=== PATIENT | female | born 1980 | race Caucasian/White ===

== ENCOUNTER 2016-10-28 14:30 | Emergency (ER) | payer OTHER ==
[~2016-10-28] VITALS: Ht 157.5 cm; Wt 72.6 kg
[~2016-10-28 14:30] MED LIST: ALPR1T PO; BIRTH CONTROL PO; IBP200T PO; LORA1TAB PO; MECL25TA56 PO; METO-274 PO; SRTR100T PO; TPR25T PO; ZLP10T PO
[2016-10-28] MEDS ORDERED: LIDOCAINE/EPI 1%-1:100,000 (XYLOCAINE) 20ML ONE (14:33)
[2016-10-28] MEDS ORDERED: NS IV 1000 ML 1,000 ML IV ONE (14:35)
[2016-10-28] MEDS ORDERED: LIDOCAINE/EPI 1%-1:100,000 (XYLOCAINE) 20ML INJ ONE (15:15)
[2016-10-28 15:26] LABS: BASOPHILS % (AUTO) 0 % (0-10); EOSINOPHILS % (AUTO) 0 % (0-10); LYMPHOCYTES # (AUTO) 1.4 X 10^3 (1.0-4.0); LYMPHOCYTES % (AUTO) 19 % (12-44); MEAN CORPUSCULAR HEMOGLOBIN 32 PG (25-34); MEAN CORPUSCULAR HGB CONC 34 G/DL (32-36); MEAN CORPUSCULAR VOLUME 93 FL (80-99); MEAN PLATELET VOLUME 10.1 FL (7.4-10.4); MONOCYTES # (AUTO) 0.9 X 10^3 (0.0-1.0); MONOCYTES % (AUTO) 13 % (0-12); NEUTROPHILS # (AUTO) 4.8 X 10^3 (1.8-7.8); NEUTROPHILS % (AUTO) 68 % (42-75); PLATELET COUNT 93 10^3/uL (130-400); RED BLOOD COUNT 3.33 10^6/uL (4.35-5.85); WHITE BLOOD COUNT 7.1 10^3/uL (4.3-11.0)
--- NOTE | 2016-10-28 15:30 | Diagnostic Imaging Report ---
PROCEDURE: CT head, face, and cervical spine without contrast. TECHNIQUE: Multiple contiguous axial images were obtained through the head, neck, and facial bones without the use of intravenous contrast. Sagittal and coronal reformations through the cervical spine and facial bones were also performed. INDICATION: Fall after seizure. COMPARISON: CT head of 09/16/10. CT HEAD FINDINGS: No intracranial hyperdense hemorrhage or space-occupying mass. No hydrocephalus or midline shift. Toure-white matter differentiation is normal. Basilar cisterns are well maintained. Right frontal scalp swelling and subcutaneous hematoma. There is associated subcutaneous air compatible with dermal laceration. No acute skull fracture. IMPRESSION: 1. No acute intracranial process. Specifically, no acute hemorrhage or space-occupying mass. 2. Right frontal scalp swelling with subcutaneous hematoma and small dermal laceration. No skull fracture. CT FACE FINDINGS: No fracture in the mid face. Specifically, the orbital appiah, maxillary sinus appiah, zygomatic arches and pterygoid plates are intact. No air-fluid level in the paranasal sinuses to serve as a secondary sign of acute fracture. Globes are symmetric without evidence of traumatic lens dislocation. No evidence of retrobulbar hematoma. The mandible is intact. No dislocation of the temporomandibular joints. Nasal bones are intact. IMPRESSION: 1. No acute fracture of the midface or mandible. 2. No evidence of intraorbital injury. CT CERVICAL SPINE FINDINGS: No acute fracture or traumatic malalignment. Intervertebral disc space heights are well maintained. No evidence of traumatic disc herniation by CT. No high-grade osseous narrowing of the spinal canal or neuroforamen. Lung apices are clear without pneumothorax. Airway is widely patent. No prevertebral soft tissue swelling. Visualized thyroid is normal. No cervical lymphadenopathy. IMPRESSION: 1. No acute fracture or traumatic malalignment of the cervical spine. Dictated by: Dictated on workstation # [id number]
[2016-10-28 15:37] LABS: INR 1.5 (0.8-1.4); PROTHROMBIN TIME PATIENT 17.5 SEC (12.2-14.7)
[2016-10-28 15:47] LABS: ALANINE AMINOTRANSFERASE 20 U/L (0-55); ALBUMIN 3.4 G/DL (3.2-4.5); ANION GAP 9 MMOL/L (5-14); ASPARTATE AMINO TRANSFERASE 48 U/L (5-34); BILIRUBIN,TOTAL 1.6 MG/DL (0.1-1.0); BLOOD UREA NITROGEN 8 MG/DL (7-18); BUN/CREATININE RATIO 11; CALCIUM 8.2 MG/DL (8.5-10.1); CARBON DIOXIDE 26 MMOL/L (21-32); CHLORIDE 99 MMOL/L (98-107); CREATININE SERUM 0.73 MG/DL (0.60-1.30); GFR ESTIMATED > 60; GLUCOSE 148 MG/DL (70-105); MAGNESIUM 1.6 MG/DL (1.8-2.4); POTASSIUM 3.1 MMOL/L (3.6-5.0); SODIUM 134 MMOL/L (135-145); TOTAL PROTEIN 6.6 G/DL (6.4-8.2)
--- NOTE | 2016-10-28 15:47 | ED Neurological Problem ---
General Chief Complaint: Neurological Problems Stated Complaint: SEIZURE Nursing Triage Note: PT BROUGHT IN BY [facility] WITH C/O SEIZURE ACTIVITY. [facility] WHEN SHE REPORTEDLY HAD A SEIZURE AND FELL, HITTING HER HEAD ON THE FLOOR. PT HAS APPROX 1.5 CM LAC TO R TOP OF HEAD. PT IS A&O X 4 AT THIS TIME. SHE C/O HEAD PAIN, DENIES NECK OR BACK PAIN. C COLLAR APPLIED AT THIS TIME. PT REPORTS THAT APPROX 6 MONTHS AGO HER OPHTHALMIC TECHNICIAN TOOK HER OFF HER METOPROLOL AND TOPAMAX. Nursing Sepsis Screen: No Definite Risk Source: patient, EMS Exam Limitations: no limitations History of Present Illness Time seen by provider: 14:35 Initial Comments Patient was brought to the emergency room via EMS after having a fall at a local grocery store caused by a brief seizure lasting 20-30 seconds according to witnesses as reported by EMS. EMS and patient stated history as above. Patient commented to nursing staff that she did not sleep well last night. She seems anxious. There was an arterial bleed within the right anterior scalp laceration. Dr. Toscano was present in the emergency room and was consulted for assistance with closure. Arterial bleed cannot be directly stopped, therefore a wide running suture was used to tamponade on the bleed. Allergies and Home Medications Allergies Coded Allergies: penicillin V (Verified Allergy, Unknown, 09/17/10) Home Medications 1 TAB PO DAILY (Reported) Metoprolol Succinate 100 Mg Tab.er.24h 100 MG PO DAILY (Reported) Topiramate 25 Mg Tablet 25 MG PO (Reported) Topiramate 25 Mg Tablet #20 25 MG PO BID Prescribed by: KENNEY VELAZQUEZ on 10/28/16 1611 Constitutional: no symptoms reported Eyes: No Symptoms Reported Ears, Nose, Mouth, Throat: see HPI Respiratory: no symptoms reported Cardiovascular: no symptoms reported Gastrointestinal: no symptoms reported Genitourinary: no symptoms reported Musculoskeletal: no symptoms reported Skin: see HPI Psychiatric/Neurological: See HPI Endocrine: No Symptoms Reported Past Tautvnn-Jgkndo-Mttgxq Hx Patient Social History Alcohol Use: Denies Use Recreational Drug Use: Yes Drug of Choice: marijuana Smoking Status: Current Everyday Smoker Type Used: Cigarettes Recent Foreign Travel: No Contact w/Someone Who Travel: No Recent Infectious Disease Expo: No Recent Hopitalizations: No Physical Abuse Screen: No Sexual Abuse: No Immunizations Up To Date Tetanus Booster (TDap): Less than 5yrs Surgeries HX Surgeries: Yes (WISDOM TEETH REMOVED) Respiratory Hx Respiratory Disorders: No Cardiovascular Hx Cardiac Disorders: Yes Cardiac Disorders: Hypertension Neurological Hx Neurological Disorders: Yes Neurological Disorders: Seizure Disorder Reproductive System Hx Reproductive Disorders: No Genitourinary Hx Genitourinary Disorders: No Gastrointestinal Hx Gastrointestinal Disorders: Yes Gastrointestinal Disorders: Liver Disease/Jaundice Musculoskeletal Hx Musculoskeletal Disorders: No Endocrine Hx Endocrine Disorders: No HEENT HX ENT Disorders: Yes Cancer Hx Cancer: No Psychosocial Hx Psychiatric Problems: Yes Blood Transfusions Hx Blood Disorders: No Physical Exam Vital Signs Vital Sign - Last 12Hours 10/28/16 14:30 Temp 98.9 Pulse 134 Resp 14 B/P 156/100 Pulse Ox 96 O2 Delivery Room Air Capillary Refill : Less Than 3 Seconds General Appearance: WD/WN mild distress HEENT: PERRL/EOMI pharynx normal other (1.5 cm laceration on the right frontal scalp with arterial bleed) Neck: non-tender full range of motion supple normal inspection Respiratory: lungs clear normal breath sounds no respiratory distress no accessory muscle use Cardiovascular: regular rate, rhythm no edema no murmur Gastrointestinal: non tender soft Extremities: normal inspection no pedal edema Neurologic/Psychiatric: rehab technician II-XII nml as tested no motor/sensory deficits alert oriented x 3 other (anxious, fine tremor) Crainal Nerves: normal hearing normal speech PERRL Coordination/Gait: normal gait Motor/Sensory: no motor deficit no sensory deficit Skin: normal color warm/dry other (1.5 cm laceration on the right frontal scalp with arterial bleed) Progress/Results/Core Measures Results/Orders Lab Results Laboratory Tests Test 10/28/16 15:16 10/28/16 15:54 Range/Units Activated Partial Thromboplast Time 28 24-35 SEC Alanine Aminotransferase (ALT/SGPT) 20 0-55 U/L Albumin 3.4 3.2-4.5 G/DL Alkaline Phosphatase 64 40-136 U/L Anion Gap 9 5-14 MMOL/L Aspartate Amino Transf (AST/SGOT) 48 H 5-34 U/L BUN/Creatinine Ratio 11 Basophils # (Auto) 0.0 0.0-0.1 10^3/uL Basophils (%) (Auto) 0 0-10 % Blood Urea Nitrogen 8 7-18 MG/DL Calcium Level 8.2 L 8.5-10.1 MG/DL Carbon Dioxide Level 26 21-32 MMOL/L Chloride Level 99 98-107 MMOL/L Creatinine 0.73 0.60-1.30 MG/DL Eosinophils # (Auto) 0.0 0.0-0.3 10^3/uL Eosinophils (%) (Auto) 0 0-10 % Estimat Glomerular Filtration Rate > 60 Glucose Level 148 H 70-105 MG/DL Hematocrit 31 L 35-52 % Hemoglobin 10.5 L 11.5-16.0 G/DL INR Comment 1.5 H 0.8-1.4 Lymphocytes # (Auto) 1.4 1.0-4.0 X 10^3 Lymphocytes (%) (Auto) 19 12-44 % Magnesium Level 1.6 L 1.8-2.4 MG/DL Mean Corpuscular Hemoglobin 32 25-34 PG Mean Corpuscular Hemoglobin Concent 34 32-36 G/DL Mean Corpuscular Volume 93 80-99 FL Mean Platelet Volume 10.1 7.4-10.4 FL Monocytes # (Auto) 0.9 0.0-1.0 X 10^3 Monocytes (%) (Auto) 13 H 0-12 % Neutrophils # (Auto) 4.8 1.8-7.8 X 10^3 Neutrophils (%) (Auto) 68 42-75 % Platelet Count 93 L 130-400 10^3/uL Potassium Level 3.1 L 3.6-5.0 MMOL/L Prothrombin Time 17.5 H 12.2-14.7 SEC Red Blood Count 3.33 L 4.35-5.85 10^6/uL Red Cell Distribution Width 14.0 10.0-14.5 % Serum Alcohol < 10 <10 MG/DL Serum Test, Qualitative NEGATIVE NEGATIVE Sodium Level 134 L 135-145 MMOL/L TSH [place] Testing 1.08 0.35-4.94 UIU/ML Total Bilirubin 1.6 H 0.1-1.0 MG/DL Total Protein 6.6 6.4-8.2 G/DL White Blood Count 7.1 4.3-11.0 10^3/uL Urine Bacteria NONE /HPF Urine Bilirubin NEGATIVE NEGATIVE Urine Casts NONE /LPF Urine Clarity SLIGHTLY CLOUDY Urine Color YELLOW Urine Crystals NONE /LPF Urine Culture Indicated NO Urine Glucose (UA) NEGATIVE NEGATIVE Urine Ketones 1+ H NEGATIVE Urine Leukocyte Esterase 1+ H NEGATIVE Urine Mucus NEGATIVE /LPF Urine Nitrite NEGATIVE NEGATIVE Urine Protein 3+ H NEGATIVE Urine RBC 0-2 /HPF Urine RBC (Auto) 4+ H NEGATIVE Urine Specific [place] 1.010 L 1.016-1.022 Urine Squamous Epithelial Cells 0-2 /HPF Urine Urobilinogen 8 H NORMAL MG/DL Urine WBC 0-2 /HPF Urine pH 7 5-9 My Orders Orders-KENNEY FELDER MD Ct Head/Face/Cervical Wo (10/28/16 14:35) Alcohol (10/28/16 14:35) Cbc With Automated Diff (10/28/16 14:35) Comprehensive Metabolic Panel (10/28/16 14:35) Drug Screen Stat (Urine) (10/28/16 14:35) Hcg,Qualitative Serum (10/28/16 14:35) Magnesium (10/28/16 14:35) Thyroid Analyzer (10/28/16 14:35) Ua Culture If Indicated (10/28/16 14:35) Saline Lock/Iv-Start (10/28/16 14:35) Ns Iv 1000 Ml (Sodium Chloride 0.9%) (10/28/16 14:35) Levetiracetam Injection (Keppra Injectio (10/28/16 21:00) Lidocaine/Epi 1% 1:100,000 (Xylocaine /E (10/28/16 14:33) Lidocaine/Epi 1% 1:100,000 (Xylocaine /E (10/28/16 15:15) Consult Physician (10/28/16 15:01) Protime With Inr (10/28/16 15:13) Partial Thromboplastin Time (10/28/16 15:13) Potassium Chloride (Tablet) (Klor Con Ta (10/28/16 16:00) Topiramate Tablet (Topamax Tablet) (10/28/16 16:15) Medications Given in ED Current Medications Medications Dose Ordered Sig/Betsy Route Start Time Stop Time Status Last Admin Dose Admin Lidocaine/ Epinephrine 20 ml ONCE ONCE INJ 10/28/16 15:15 10/28/16 15:16 DC 10/28/16 14:45 20 ML Potassium Chloride 40 meq ONCE ONCE PO 10/28/16 16:00 10/28/16 16:01 DC 10/28/16 16:34 40 MEQ Topiramate 25 mg ONCE ONCE PO 10/28/16 16:15 10/28/16 16:16 DC 10/28/16 16:35 25 MG Vital Signs/I&O Vital Sign - Last 12Hours 10/28/16 10/28/16 14:30 16:35 Temp 98.9 98.9 Pulse 134 100 Resp 14 16 B/P 156/100 Pulse Ox 96 97 O2 Delivery Room Air Room Air Blood Pressure Mean: 118 Progress Note : Progress Note The scalp laceration with arterial bleed was controlled with tamponade not with running suture. Dr. Toscano applied the suture after 4 mL of lidocaine with epinephrine was injected by this provider. CT of the head, face, and cervical spine was negative for acute injury. C-collar was removed after review of imaging reports. Patient was given a liter of IV fluids and 500 mg of IV Keppra. Prior to dismissal she was also given potassium 40 mEq orally and 25 mg of Topamax. It is presumed the Topamax was stopped by her GI specialist due to liver failure and metabolism of her antiepileptic medications by the liver. Patient was instructed use of medications metabolized by the liver needs to be done under supervision and cautiously. A short-term prescription for low-dose Topamax was provided with instructions to review these medications with her provider on follow-up. Mild elevation in transaminases along with elevated INR suggest chronic liver failure. Patient was dismissed home in good condition. We did address her prior marijuana use and she does admit to using marijuana in recent weeks. She was advised that use of any illicit substances can potentiate seizures. Diagnostic Imaging Diagonstic Imaging: CT Plain Films/CT/US/NM/MRI: facial bones, c-spine, head Comments CT head, facial bones, and cervical spine viewed by me and report reviewed. See report below: NAME: MILAGROS BOLAÑOS MED REC#: [id number] PT STATUS: REG ER : 1980 PHYSICIAN: KENNEY FELDER MD ADMIT DATE: 10/28/16/ER Draft Date of Exam:10/28/16 CT HEAD/FACE/CERVICAL WO PROCEDURE: CT head, face, and cervical spine without contrast. TECHNIQUE: Multiple contiguous axial images were obtained through the head, neck, and facial bones without the use of intravenous contrast. Sagittal and coronal reformations through the cervical spine and facial bones were also performed. INDICATION: Fall after seizure. COMPARISON: CT head of 09/16/10. CT HEAD FINDINGS: No intracranial hyperdense hemorrhage or space-occupying mass. No hydrocephalus or midline shift. Toure-white matter differentiation is normal. Basilar cisterns are well maintained. Right frontal scalp swelling and subcutaneous hematoma. There is associated subcutaneous air compatible with dermal laceration. No acute skull fracture. IMPRESSION: 1. No acute intracranial process. Specifically, no acute hemorrhage or space-occupying mass. 2. Right frontal scalp swelling with subcutaneous hematoma and small dermal laceration. No skull fracture. CT FACE FINDINGS: No fracture in the mid face. Specifically, the orbital appiah, maxillary sinus appiah, zygomatic arches and pterygoid plates are intact. No air-fluid level in the paranasal sinuses to serve as a secondary sign of acute fracture. Globes are symmetric without evidence of traumatic lens dislocation. No evidence of retrobulbar hematoma. The mandible is intact. No dislocation of the temporomandibular joints. Nasal bones are intact. IMPRESSION: 1. No acute fracture of the midface or mandible. 2. No evidence of intraorbital injury. CT CERVICAL SPINE FINDINGS: No acute fracture or traumatic malalignment. Intervertebral disc space heights are well maintained. No evidence of traumatic disc herniation by CT. No high-grade osseous narrowing of the spinal canal or neuroforamen. Lung apices are clear without pneumothorax. Airway is widely patent. No prevertebral soft tissue swelling. Visualized thyroid is normal. No cervical lymphadenopathy. IMPRESSION: 1. No acute fracture or traumatic malalignment of the cervical spine. Dictated on workstation # [id number] Dict: 10/28/16 1518 Trans: 10/28/16 1529 [facility] [id number] Interpreted by: PURNIMA MELVIN MD Departure Impression Impression: Primary Impression: Scalp laceration Qualified Code: S01.01XA - Laceration without foreign body of scalp, initial encounter Additional Impressions: Arterial hemorrhage Seizure Hypokalemia Chronic liver failure Qualified Code: K72.10 - Chronic hepatic failure without coma Disposition: 01 HOME, SELF-CARE Condition: Improved Departure-Patient Inst. Decision time for Depature: 16:09 Referrals: DAVID QUINTANA MD (PCP/Family) Primary Care Physician Patient Instructions: Seizures, Adult (DC) Add. Discharge Instructions: Drink plenty of clear liquids. Resume Topamax as prescribed. Follow-up with Dr. Quintana as soon as possible to renew your prescriptions and have your potassium levels followed. Eat a diet rich in potassium which would include foods such as yogurt, bananas, watermelon, citrus fruits and juices, etc. Return to the ER if you have worsening symptoms. Please note that you are not legally allowed to operate a vehicle until seizure free for 6 months. Your lab work would indicate you have some degree of liver dysfunction. For this reason you are being started on a very low dose of Topamax. Please review your liver function and choice of antiseizure medications carefully with your doctor. Avoid substances metabolized by the liver such as alcohol, Tylenol, etc. Have your sutures removed in about one week. You may shower as usual but avoid submersion until sutures are removed. Suspect significant bruising around the site of your laceration and hematoma. Monitor your wound for signs of infection such as increasing redness, increasing pain, fever, or puslike drainage. Return to care promptly if you notice these symptoms. All discharge instructions reviewed with patient and/or family. Voiced understanding. Scripts Topiramate (Topamax)25 Mg [id number] Mg PO BID #20 TAB Prov:KENNEY FELDER MD 10/28/16 Copy Copies To 1: DAVID QUINTANA MD, JOSHUA T MD Oct 28, 2016 15:47
[2016-10-28 15:48] LABS: ALCOHOL < 10 MG/DL (<10)
[2016-10-28] MEDS ORDERED: KCL 10 MEQ TAB (MICRO K) PO ONE (16:00)
[2016-10-28 16:03] LABS: BILIRUBIN,URINE NEGATIVE (NEGATIVE); KETONES,URINE 1+ (NEGATIVE); LEUKOCYTE ESTERASE ,URINE 1+ (NEGATIVE); NITRITE,URINE NEGATIVE (NEGATIVE); PH,URINE 7 (5-9); PROTEIN,URINE 3+ (NEGATIVE); UROBILINOGEN,URINE 8 MG/DL (NORMAL)
[2016-10-28 16:11] LABS: SQUAMOUS EPITHELIAL CELL,UR 0-2 /HPF; WBC,URINE 0-2 /HPF
[2016-10-28] MEDS ORDERED: TPR25T PO (16:11)
[2016-10-28] MEDS ORDERED: toPIRamate 25 MG (TOPAMAX) TAB PO ONE (16:15)
[2016-10-28 16:35] VITALS: BP 148/95
--- NOTE | 2016-10-28 16:51 | Consultation ---
History of Present Illness History of Present Illness Patient Consulted On(sara/time) 10/28/16 16:45 Date of Admission History of Present Illness consult requested By Dr. Zepeda for laceration head 36 year old female who fell at [employer] due to seizure. Patient had laceration to right forehead scalp. Patient has history of seizures but states was taken off of medications. Patient slight headache, no neck pain. No pain in chest abdomen or pelvis. Denies any n/v fever sweats chills shortness of breath or chest pain. Brought in by EMS Allergies and Home Medications Allergies Coded Allergies: penicillin V (Verified Allergy, Unknown, 09/17/10) Home Medications 1 TAB PO DAILY (Reported) Metoprolol Succinate 100 Mg Tab.er.24h 100 MG PO DAILY (Reported) Topiramate 25 Mg Tablet 25 MG PO (Reported) Topiramate 25 Mg Tablet #20 25 MG PO BID Prescribed by: KENNEY VELAZQUEZ on 10/28/16 1611 Past Bjezsao-Rtnxno-Vwjjvy Hx Patient Social History Alcohol Use: Denies Use Recreational Drug Use: No Smoking Status: Current Everyday Smoker Type Used: Cigarettes Recent Foreign Travel: No Contact w/Someone Who Travel: No Recent Infectious Disease Expo: No Recent Hopitalizations: No Physical Abuse Screen: No Sexual Abuse: No Immunizations Up To Date Tetanus Booster (TDap): Less than 5yrs Surgeries HX Surgeries: Yes (WISDOM TEETH REMOVED) Respiratory Hx Respiratory Disorders: No Cardiovascular Hx Cardiac Disorders: Yes Cardiac Disorders: Hypertension Neurological Hx Neurological Disorders: Yes Neurological Disorders: Seizure Disorder Reproductive System Hx Reproductive Disorders: No Genitourinary Hx Genitourinary Disorders: No Gastrointestinal Hx Gastrointestinal Disorders: Yes Gastrointestinal Disorders: Liver Disease/Jaundice Musculoskeletal Hx Musculoskeletal Disorders: No Endocrine Hx Endocrine Disorders: No HEENT HX ENT Disorders: Yes Cancer Hx Cancer: No Psychosocial Hx Psychiatric Problems: Yes Blood Transfusions Hx Blood Disorders: No Family Medical History Significant Family History: No Pertinent Family Hx Review of Systems-General Constitutional: no symptoms reported EENTM: no symptoms reported Respiratory: no symptoms reported Cardiovascular: no symptoms reported Gastrointestinal: no symptoms reported Genitourinary: no symptoms reported Musculoskeletal: no symptoms reported Skin: see HPI (laceration) Psychiatric/Neurological: No Symptoms Reported Physical Exam-General Problems Physical Exam Vital Signs Vital Sign - Last 12Hours 10/28/16 14:30 Temp 98.9 Pulse 134 Resp 14 B/P 156/100 Pulse Ox 96 O2 Delivery Room Air Capillary Refill : Less Than 3 Seconds General Appearance: no apparent distress HEENT: PERRL/EOMI normal ENT inspection other (GCS 15 1.5 cm laceration of right upper forehead) Neck: non-tender supple normal inspection Respiratory: lungs clear Cardiovascular: regular rate, rhythm Gastrointestinal: non tender soft Rectal: deferred Back: normal inspection Extremities: non-tender normal inspection Neurologic/Psychiatric: alert normal mood/affect oriented x 3 Skin: warm/dry (laceration right forehead 1.5 cm) Data Review Labs Laboratory Tests 10/28/16 15:16: Activated Partial Thromboplast Time 28, Alanine Aminotransferase (ALT/SGPT) 20, Albumin 3.4, Alkaline Phosphatase 64, Anion Gap 9, Aspartate Amino Transf (AST/ SGOT) 48H, BUN/Creatinine Ratio 11, Basophils # (Auto) 0.0, Basophils (%) (Auto ) 0, Blood Urea Nitrogen 8, Calcium Level 8.2L, Carbon Dioxide Level 26, Chloride Level 99, Creatinine 0.73, Eosinophils # (Auto) 0.0, Eosinophils (%) ( Auto) 0, Estimat Glomerular Filtration Rate > 60, Glucose Level 148H, Hematocrit 31L, Hemoglobin 10.5L, INR Comment 1.5H, Lymphocytes # (Auto) 1.4, Lymphocytes (%) (Auto) 19, Magnesium Level 1.6L, Mean Corpuscular Hemoglobin 32 , Mean Corpuscular Hemoglobin Concent 34, Mean Corpuscular Volume 93, Mean Platelet Volume 10.1, Monocytes # (Auto) 0.9, Monocytes (%) (Auto) 13H, Neutrophils # (Auto) 4.8, Neutrophils (%) (Auto) 68, Platelet Count 93L, Potassium Level 3.1L, Prothrombin Time 17.5H, Red Blood Count 3.33L, Red Cell Distribution Width 14.0, Serum Alcohol < 10, Serum Test, Qualitative NEGATIVE, Sodium Level 134L, TSH [place] Testing 1.08, Total Bilirubin 1.6H, Total Protein 6.6, White Blood Count 7.1 10/28/16 15:54: Urine Bacteria NONE, Urine Bilirubin NEGATIVE, Urine Casts NONE, Urine Clarity SLIGHTLY CLOUDY, Urine Color YELLOW, Urine Crystals NONE, Urine Culture Indicated NO, Urine Glucose (UA) NEGATIVE, Urine Ketones 1+H, Urine Leukocyte Esterase 1+H, Urine Mucus NEGATIVE, Urine Nitrite NEGATIVE, Urine Protein 3+H, Urine RBC 0-2, Urine RBC (Auto) 4+H, Urine Specific [place] 1.010L, Urine Squamous Epithelial Cells 0-2, Urine Urobilinogen 8H, Urine WBC 0-2, Urine pH 7 Assessment/Plan Assessment/Plan Assessment/Plan fall, seizure, laceration forehead 1.[address] head cspine no acute process Being placed back on antiseizure medications. Follow up with PCP Recommend removing sutures in 7-[address] Zepeda asked me to help with laceration of forehead, He had already injected 4 mL of lidocaine with epi. Patient there was small arterial bleed unable to be visualized. 4-0 prolene suture used to close in running fashion. Hemestasis achieved. Area was cleaned and dried bandage applied. Tolerated well. DIONNE CHANEY DO Oct 28, 2016 16:51
[2016-10-28] MEDS ORDERED: LEVETIRACETAM INJECTION 500 MG in NORMAL SALINE (BAXTER MINI) 50 ML IV ONE (21:00)
== END 2016-10-28 16:35 | disposition home or self-care (01) ==
LOC: EDUNIT# 14:30 → ER 14:31
DX: G40.909 Epilepsy, unspecified, not intractable, without status epilepticus (principal); S01.01XA Laceration without foreign body of scalp, initial encounter; R58 Hemorrhage, not elsewhere classified; E87.6 Hypokalemia; K72.10 Chronic hepatic failure without coma; F12.10 Cannabis abuse, uncomplicated; F17.210 Nicotine dependence, cigarettes, uncomplicated; Z79.899 Other long term (current) drug therapy; W01.0XXA Fall on same level from slipping, tripping and stumbling without subsequent striking against object, initial encounter; Y92.512 Supermarket, store or market as the place of occurrence of the external cause; Y99.8 Other external cause status
CPT/HCPCS: 12001; 36415; 70450; 70486; 72125; 80053; 80320; 81000; 83735; 84443; 84703; 85025; 85610; 85730

== ENCOUNTER → 2016-11-21 | Outpatient (CLI) | payer OTHER ==
[~2016-11-21] MED LIST changes: +ALPR1TAB2 PO; +BIRTHCONTROL PO; +CLIN300C11 PO; +ESCI10TA PO; +MUPI15CR TP; +PREG75CA PO; +SPIR25TA3 PO
--- OUTSIDE RECORDS SUMMARY | 2016-11-21 09:31 | XMS REPORT | Continuity of Care Document ---
Author Author [facility] Organization [facility] Address Unknown Phone Unavailable Allergies Active Description Code Type Severity Reaction Onset Reported/Identified Relationship to Patient Clinical Status Yes penicillin V [id number] Drug Allergy Unknown N/A 09/17/2010 Medications Problems Date Dx Coded Attending Type Code Diagnosis Diagnosed By 09/17/2010 Ot 311 09/17/2010 Ot 780.39 09/17/2010 Ot 790.5 09/17/2010 Ot 873.0 09/17/2010 Ot E000.8 09/17/2010 Ot E849.6 09/17/2010 Ot E885.9 09/17/2010 Ot V06.1 09/17/2010 Ot V58.69 03/14/2011 Ot 292.0 03/14/2011 Ot 780.39 06/12/2015 Ot 959.7 06/12/2015 Ot E000.8 06/12/2015 Ot E849.0 06/12/2015 Ot E888.9 06/02/2016 GRETCHEN ROMAN SPECIALTY THERAPIST Ot R10.32 LEFT LOWER QUADRANT PAIN 06/02/2016 GRETCHEN ROMAN SPECIALTY THERAPIST Ot R17 UNSPECIFIED JAUNDICE 06/02/2016 GRETCHEN ROMAN SPECIALTY THERAPIST Ot R10.32 LEFT LOWER QUADRANT PAIN 06/02/2016 GRETCHEN ROMAN SPECIALTY THERAPIST Ot R17 UNSPECIFIED JAUNDICE 06/03/2016 GRETCHEN ROMAN SPECIALTY THERAPIST Ot R10.32 LEFT LOWER QUADRANT PAIN 06/03/2016 GRETCHEN ROMAN SPECIALTY THERAPIST Ot R17 UNSPECIFIED JAUNDICE 06/12/2016 GRETCHEN ROMAN SPECIALTY THERAPIST Ot E86.0 DEHYDRATION 06/12/2016 GRETCHEN ROMAN APRN Ot R10.11 RIGHT UPPER QUADRANT PAIN 06/12/2016 GRETCHEN ROMAN SPECIALTY THERAPIST Ot R17 UNSPECIFIED JAUNDICE 06/29/2016 GRETCHEN ROMAN SPECIALTY THERAPIST Ot R10.32 LEFT LOWER QUADRANT PAIN 06/29/2016 GRETCHEN ROMAN SPECIALTY THERAPIST Ot R17 UNSPECIFIED JAUNDICE 07/04/2016 GRETCHEN ROMAN SPECIALTY THERAPIST Ot E86.0 DEHYDRATION 07/04/2016 GRETCHEN ROMAN SPECIALTY THERAPIST Ot R10.11 RIGHT UPPER QUADRANT PAIN 07/04/2016 GRETCHEN ROMAN SPECIALTY THERAPIST Ot R17 UNSPECIFIED JAUNDICE 10/28/2016 BRADFORD SPARKS, KENNEY Moser Ot E87.6 HYPOKALEMIA 10/28/2016 KENNEY FELDER MD Ot F12.10 CANNABIS ABUSE, UNCOMPLICATED 10/28/2016 BRADFORD SPARKS, KENNEY Moser Ot F17.210 NICOTINE DEPENDENCE, CIGARETTES, UNCOMPL 10/28/2016 KENNEY FELDER MD Ot G40.909 EPILEPSY, UNSP, NOT INTRACTABLE, WITHOUT 10/28/2016 KENNEY FELDER MD Ot K72.10 CHRONIC HEPATIC FAILURE WITHOUT COMA 10/28/2016 KENNEY FELDER MD Ot R58 HEMORRHAGE, NOT ELSEWHERE CLASSIFIED 10/28/2016 KENNEY FELDER MD Ot S01.01XA LACERATION WITHOUT FOREIGN BODY OF SCALP 10/28/2016 BRADFORD SPARKS, KENNEY Moser Ot W01.0XXA FALL SAME LEV FROM SLIP/TRIP W/O STRIKE 10/28/2016 KENNEY FELDER MD Ot Y92.512 SUPERMARKET, STORE OR MARKET PLACE 10/28/2016 KENNEY FELDER MD Ot Y99.8 OTHER EXTERNAL CAUSE STATUS 10/28/2016 KENNEY FELDER MD Ot Z79.899 OTHER [facility] (CURRENT) DRUG THERAPY 10/30/2016 Ot 959.7 LOWER LEG INJURY NOS 10/30/2016 Ot E000.8 OTHER EXTERNAL CAUSE STATUS 10/30/2016 Ot E849.0 ACCIDENT IN HOME 10/30/2016 Ot E888.9 FALL NOS 10/30/2016 PABLO MOORE Ot 719.41 JOINT PAIN-SHLDER 10/30/2016 PABLO MOORE Ot 723.1 CERVICALGIA 10/30/2016 GRETCHEN ROMAN APRN Ot R10.32 LEFT LOWER QUADRANT PAIN 10/30/2016 GRETCHEN ROMAN APRN Ot R17 UNSPECIFIED JAUNDICE 10/30/2016 GRETCHEN ROMAN APRN Ot E86.0 DEHYDRATION 10/30/2016 GRETCHEN ROMAN APRN Ot R10.11 RIGHT UPPER QUADRANT PAIN 10/30/2016 GRETCHEN ROMAN APRN Ot R17 UNSPECIFIED JAUNDICE 10/31/2016 KENNEY FELDER MD, Ot E87.6 HYPOKALEMIA 10/31/2016 KENNEY FELDER MD, Ot F12.10 CANNABIS ABUSE, UNCOMPLICATED 10/31/2016 KENNEY FELDER MD Ot F17.210 NICOTINE DEPENDENCE, CIGARETTES, UNCOMPL 10/31/2016 KENNEY FELDER MD, Ot G40.909 EPILEPSY, UNSP, NOT INTRACTABLE, WITHOUT 10/31/2016 KENNEY FELDER MD, Ot K72.10 CHRONIC HEPATIC FAILURE WITHOUT COMA 10/31/2016 KENNEY FELDER MD, Ot R58 HEMORRHAGE, NOT ELSEWHERE CLASSIFIED 10/31/2016 KENNEY FELDER MD, Ot S01.01XA LACERATION WITHOUT FOREIGN BODY OF SCALP 10/31/2016 KENNEY FELDER MD, Ot W01.0XXA FALL SAME LEV FROM SLIP/TRIP W/O STRIKE 10/31/2016 KENNEY FELDER MD, Ot Y92.512 SUPERMARKET, STORE OR MARKET PLACE 10/31/2016 KENNEY FELDER MD, Ot Y99.8 OTHER EXTERNAL CAUSE STATUS 10/31/2016 KENNEY FELDER MD, Ot Z79.899 OTHER JAIL (CURRENT) DRUG THERAPY Procedures Results Test Result Range Automated blood complete blood count (hemogram) panel - 05/30/16 14:28 Blood leukocytes automated count (number/volume) 9.1 10*3/ uL 4.3-11.0 Blood erythrocytes automated count (number/volume) 3.34 10*6 /uL 4.35-5.85 Venous blood hemoglobin measurement (mass/volume) 11.3 g/dL 11.5-16.0 Blood hematocrit (volume fraction) 32 % 35-52 Automated erythrocyte mean corpuscular volume 97 [foz_us] 80-99 Automated erythrocyte mean corpuscular hemoglobin (mass per erythrocyte) 34 pg 25-34 Automated erythrocyte mean corpuscular hemoglobin concentration measurement ( mass/volume) 35 g/dL 32-36 Automated erythrocyte distribution width ratio 16.2 % 10.0-14.5 Automated blood platelet count (count/volume) 98 10*3/uL 130-400 Automated blood platelet mean volume measurement 12.3 [foz_ us] 7.4-10.4 Comprehensive metabolic panel - 05/30/16 14:28 Serum or plasma sodium measurement (moles/volume) 136 mmol/ L 135-145 Serum or plasma potassium measurement (moles/volume) 3.3 mmol/L 3.6-5.0 Serum or plasma chloride measurement (moles/volume) 103 mmol /L 98-107 Carbon dioxide 22 mmol/L 21-32 Serum or plasma anion gap determination (moles/volume) 11 mmol/L 5-14 Serum or plasma urea nitrogen measurement (mass/volume) 9 mg /dL 7-18 Serum or plasma creatinine measurement (mass/volume) 0.68 mg /dL 0.60-1.30 Serum or plasma urea nitrogen/creatinine mass ratio 13 NRG Serum or plasma creatinine measurement with calculation of estimated glomerular filtration rate > NRG Serum or plasma glucose measurement (mass/volume) 70 mg/dL 70-105 Serum or plasma calcium measurement (mass/volume) 8.6 mg/dL 8.5-10.1 Serum or plasma total bilirubin measurement (mass/volume) 7.6 mg/dL 0.1-1.0 Serum or plasma alkaline phosphatase measurement (enzymatic activity/volume) 110 U/L 40-136 Serum or plasma aspartate aminotransferase measurement (enzymatic activity/ volume) 184 U/L 5-34 Serum or plasma alanine aminotransferase measurement (enzymatic activity/volume ) 51 U/L 0-55 Serum or plasma protein measurement (mass/volume) 7.3 g/dL 6.4-8.2 Serum or plasma albumin measurement (mass/volume) 3.2 g/dL 3.2-4.5 Serum or plasma amylase measurement (enzymatic activity/volume) - 05/30/16 14: 28 Serum or plasma amylase measurement (enzymatic activity/volume) 61 U/L 25-125 Lipase - 05/30/16 14:28 Lipase 70 U/L 8-78 THYROID STIMULATING HORMONE - 05/30/16 14:28 THYROID STIMULATING HORMONE 2.59 u[iU]/mL 0.35-4.94 Complete blood count (CBC) with automated white blood cell (WBC) differential - 01/24/17 15:16 Blood leukocytes automated count (number/volume) 7.1 10*3/ uL 4.3-11.0 Blood erythrocytes automated count (number/volume) 3.33 10*6 /uL 4.35-5.85 Venous blood hemoglobin measurement (mass/volume) 10.5 g/dL 11.5-16.0 Blood hematocrit (volume fraction) 31 % 35-52 Automated erythrocyte mean corpuscular volume 93 [foz_us] 80-99 Automated erythrocyte mean corpuscular hemoglobin (mass per erythrocyte) 32 pg 25-34 Automated erythrocyte mean corpuscular hemoglobin concentration measurement ( mass/volume) 34 g/dL 32-36 Automated erythrocyte distribution width ratio 14.0 % 10.0-14.5 Automated blood platelet count (count/volume) 93 10*3/uL 130-400 Automated blood platelet mean volume measurement 10.1 [foz_ us] 7.4-10.4 Automated blood neutrophils/100 leukocytes 68 % 42-75 Automated blood lymphocytes/100 leukocytes 19 % 12-44 Blood monocytes/100 leukocytes 13 % 0-12 Automated blood eosinophils/100 leukocytes 0 % 0-10 Automated blood basophils/100 leukocytes 0 % 0-10 Blood neutrophils automated count (number/volume) 4.8 10*3 1.8-7.8 Blood lymphocytes automated count (number/volume) 1.4 10*3 1.0-4.0 Blood monocytes automated count (number/volume) 0.9 10*3 0.0-1.0 Automated eosinophil count 0.0 10*3/uL 0.0-0.3 Automated blood basophil count (count/volume) 0.0 10*3/uL 0.0-0.1 PT panel in platelet poor plasma by coagulation assay - 10/28/16 15:16 Prothrombin time (PT) in platelet poor plasma by coagulation assay 17.5 s 12.2-14.7 INR in platelet poor plasma or blood by coagulation assay 1.5 0.8-1.4 Activated partial thromboplastin time (aPTT) in platelet poor plasma bycoagulation assay - 10/28/16 15:16 Activated partial thromboplastin time (aPTT) in platelet poor plasma bycoagulation assay 28 s 24-35 Serum or plasma choriogonadotropin ( test) detection - 10/28/16 15:16 Serum or plasma choriogonadotropin ( test) detection NEGATIVE NEGATIVE Comprehensive metabolic panel - 10/28/16 15:16 Serum or plasma sodium measurement (moles/volume) 134 mmol/ L 135-145 Serum or plasma potassium measurement (moles/volume) 3.1 mmol/L 3.6-5.0 Serum or plasma chloride measurement (moles/volume) 99 mmol/ L 98-107 Carbon dioxide 26 mmol/L 21-32 Serum or plasma anion gap determination (moles/volume) 9 mmol/L 5-14 Serum or plasma urea nitrogen measurement (mass/volume) 8 mg /dL 7-18 Serum or plasma creatinine measurement (mass/volume) 0.73 mg /dL 0.60-1.30 Serum or plasma urea nitrogen/creatinine mass ratio 11 NRG Serum or plasma creatinine measurement with calculation of estimated glomerular filtration rate > NRG Serum or plasma glucose measurement (mass/volume) 148 mg/dL 70-105 Serum or plasma calcium measurement (mass/volume) 8.2 mg/dL 8.5-10.1 Serum or plasma total bilirubin measurement (mass/volume) 1.6 mg/dL 0.1-1.0 Serum or plasma alkaline phosphatase measurement (enzymatic activity/volume) 64 U/L 40-136 Serum or plasma aspartate aminotransferase measurement (enzymatic activity/ volume) 48 U/L 5-34 Serum or plasma alanine aminotransferase measurement (enzymatic activity/volume ) 20 U/L 0-55 Serum or plasma protein measurement (mass/volume) 6.6 g/dL 6.4-8.2 Serum or plasma albumin measurement (mass/volume) 3.4 g/dL 3.2-4.5 Magnesium - 10/28/16 15:16 Magnesium 1.6 mg/dL 1.8-2.4 Serum or plasma thyrotropin measurement by detection limit <=0.05 miu/l (units/ volume) - 10/28/16 15:16 Serum or plasma thyrotropin measurement by detection limit <=0.05 miu/l (units/ volume) 1.08 u[iU]/mL 0.35-4.94 Serum or plasma ethanol measurement (mass/volume) - 10/28/16 15:16 Serum or plasma ethanol measurement (mass/volume) < mg/dL <10 Complete urinalysis with reflex to culture - 10/28/16 15:54 Urine color determination YELLOW NRG Urine clarity determination SLIGHTLY CLOUDY NRG Urine pH measurement by test strip 7 5- 9 Specific gravity of urine by test strip 1.010 1.016-1.022 Urine protein assay by test strip, semi-quantitative 3+ NEGATIVE Urine glucose detection by automated test strip NEGATIVE NEGATIVE Erythrocytes detection in urine sediment by light microscopy 4+ NEGATIVE Urine ketones detection by automated test strip 1+ NEGATIVE Urine nitrite detection by test strip NEGATIVE NEGATIVE Urine total bilirubin detection by test strip NEGATIVE NEGATIVE Urine urobilinogen measurement by automated test strip (mass/volume) 8 mg/dL NORMAL Urine leukocyte esterase detection by dipstick 1+ NEGATIVE Automated urine sediment erythrocyte count by microscopy (number/high power field) [HPF] NRG Automated urine sediment leukocyte count by microscopy (number/high power field ) [HPF] NRG Bacteria detection in urine sediment by light microscopy NONE NRG Squamous epithelial cells detection in urine sediment by light microscopy 0-2 NRG Crystals detection in urine sediment by light microscopy NONE NRG Casts detection in urine sediment by light microscopy NONE NRG Mucus detection in urine sediment by light microscopy NEGATIVE NRG Complete urinalysis with reflex to culture NO NRG Encounters ACCT No. Visit Date/Time Discharge Status Pt. Type Provider Facility Loc./Unit Complaint [id number] 10/28/2016 14:31:00 2016 16:35:00 DIS Outpatient BRADFORD SPARKS, KENNEY Moser [facility] ER SEIZURE [id number] 06/12/2015 12:19:00 2014 23:59:59 CLS Outpatient PABLO MOORE [employer] SUPER[employer] [facility] RAD NECK PAIN [id number] 06/10/2016 15:46:00 ACT Outpatient GRETCHEN ROMAN APRN [facility] RAD RUQ PAIN,JAUNDICE, DEHYDRATION [id number] 05/30/2016 13:32:00 ACT Outpatient GRETCHEN ROMAN APRN [facility] RAD LOWER QUAD PAIN, JAUNDICE [id number] 07/23/2012 11:21:00 Document Registration [id number] 03/14/2011 21:20:00 Document Registration [id number] 09/16/2010 19:59:00 Document Registration
--- NOTE | 2016-12-02 11:22 | ELECTROENCEPHALOPATHY REPORT ---
PROCEDURE PHYSICIAN: SABRINA GARCIA DATE OF PROCEDURE: 11/21/2016 Ms. Imani Babin is a 36-year-old female with a history of having first seizure in 2009. The patient has auras of rainbows lights followed by a tunnel vision. She describes tonic-clonic activity with loss of bladder control and tongue biting, foam at the mouth and nausea following the event. This study was requested to evaluate for epileptiform activity. The background rhythm consisted of 10 Hz, 60 to 85 microvolts in amplitude, bilaterally symmetrical over the vertex region which was reactive to eye opening. Intermix were few sharp waves in the left temporal area, mostly in the anterior part. Almost continuous pulse artifact was noted. Some movement artifacts were also present. The patient was awake, drowsy and asleep during this recording. Hyperventilation was performed and there was build-up of mild diffuse slow wave activity. Intermittent photic stimulation was done at various flash frequencies and no photic driving response was seen. IMPRESSION: This EEG is abnormal in awake and sleepy states. The epileptiform activity described above is suggestive of a seizure focus in the left temporal area which can lead to the seizure activity. Clinical correlation is suggested. Job ID: [id number] Dictated Date: 12/02/2016 10:21:35 Maintenance Planner Date: 12/02/2016 11:18:52 / sandra
== END ==
LOC: RT 09:27
PROVIDERS: ATTEND Family Medicine
DX: G40.909 Epilepsy, unspecified, not intractable, without status epilepticus (principal)
CPT/HCPCS: 95819

== ENCOUNTER 2016-11-24 08:20 | Emergency (ER) | payer OTHER ==
[~2016-11-24] VITALS: Ht 157.5 cm; Wt 72.6 kg
[~2016-11-24 08:20] MED LIST changes: -ALPR1TAB2 PO; -BIRTHCONTROL PO; -CLIN300C11 PO; -ESCI10TA PO; -MUPI15CR TP; -PREG75CA PO; -SPIR25TA3 PO
--- OUTSIDE RECORDS SUMMARY | 2016-11-24 08:27 | XMS REPORT | Continuity of Care Document ---
Author Author [facility] Organization [facility] Address Unknown Phone Unavailable Allergies Active Description Code Type Severity Reaction Onset Reported/Identified Relationship to Patient Clinical Status Yes penicillin V [id number] Drug Allergy Unknown N/A 09/17/2010 Medications Problems [...] E849.0 06/12/2015 Ot E888.9 06/02/2016 GRETCHEN ROMAN CONTROL SYSTEMS ENG Ot R10.32 LEFT LOWER QUADRANT PAIN 06/02/2016 GRETCHEN ROMAN CONTROL SYSTEMS ENG Ot R17 UNSPECIFIED JAUNDICE 06/02/2016 GRETCHEN ROMAN CONTROL SYSTEMS ENG Ot R10.32 LEFT LOWER QUADRANT PAIN 06/02/2016 GRETCHEN ROMAN CONTROL SYSTEMS ENG Ot R17 UNSPECIFIED JAUNDICE 06/03/2016 GRETCHEN ROMAN CONTROL SYSTEMS ENG Ot R10.32 LEFT LOWER QUADRANT PAIN 06/03/2016 GRETCHEN ROMAN CONTROL SYSTEMS ENG Ot R17 UNSPECIFIED JAUNDICE 06/12/2016 GRETCHEN ROMAN CONTROL SYSTEMS ENG Ot E86.0 DEHYDRATION 06/12/2016 GRETCHEN ROMAN APRN Ot R10.11 RIGHT UPPER QUADRANT PAIN 06/12/2016 GRETCHEN ROMAN CONTROL SYSTEMS ENG Ot R17 UNSPECIFIED JAUNDICE 06/29/2016 GRETCHEN ROMAN CONTROL SYSTEMS ENG Ot R10.32 LEFT LOWER QUADRANT PAIN 06/29/2016 GRETCHEN ROMAN CONTROL SYSTEMS ENG Ot R17 UNSPECIFIED JAUNDICE 07/04/2016 GRETCHEN ROMAN CONTROL SYSTEMS ENG Ot E86.0 DEHYDRATION 07/04/2016 GRETCHEN ROMAN CONTROL SYSTEMS ENG Ot R10.11 RIGHT UPPER QUADRANT PAIN 07/04/2016 GRETCHEN ROMAN CONTROL SYSTEMS ENG Ot R17 UNSPECIFIED JAUNDICE 10/28/2016 BRADFORD SPARKS, [...] Ot R58 HEMORRHAGE, NOT ELSEWHERE CLASSIFIED 10/28/2016 KNENEY FELDER MD Ot S01.01XA LACERATION WITHOUT FOREIGN BODY OF SCALP 10/28/2016 BRADFORD SPARKS, KENNEY Moser Ot W01.0XXA FALL SAME LEV FROM SLIP/TRIP W/O STRIKE 10/28/2016 KENNEY FELDER MD Ot Y92.512 SUPERMARKET, STORE OR MARKET PLACE 10/28/2016 KENNEY FELDER MD Ot Y99.8 OTHER EXTERNAL CAUSE STATUS 10/28/2016 KENNEY FELDER MD Ot Z79.899 OTHER [facility] (CURRENT) DRUG THERAPY 10/30/2016 Ot 959.7 LOWER [...] 10/31/2016 KENNEY FELDER MD, Ot Z79.899 OTHER [facility] (CURRENT) DRUG THERAPY Procedures Results Test Result [...] Status Pt. Type Provider Facility Loc./Unit Complaint [id number] 10/28/2016 14:31:00 2016 16:35:00 DIS Outpatient BRADFORD SPARKS, KENNEY Moser [facility] ER SEIZURE [id number] 06/12/2015 12:19:00 2014 23:59:59 CLS Outpatient PABLO MOORE [facility] RAD NECK PAIN [id number] 11/21/2016 09:27:00 ACT Outpatient DAVID KOEHLER MD [facility] RT SEIZURE DISORDER [id number] 06/10/2016 15:46:00 ACT Outpatient GRETCHEN ROMAN APRN [facility] RAD RUQ PAIN,JAUNDICE, DEHYDRATION [id number] 05/30/2016 13:32:00 ACT Outpatient GRETCHEN ROMAN APRN [facility] RAD LOWER QUAD PAIN, JAUNDICE [id number] 07/23/2012 11:21:00 Document Registration [id number] 03/14/2011 21:20:00 Document Registration [id number] 09/16/2010 19:59:00 Document Registration
[2016-11-24] MEDS ORDERED: BIRTHCONTROL PO (08:51)
[2016-11-24] MEDS ORDERED: ALPR1TAB2 PO (08:51)
[2016-11-24] MEDS ORDERED: SPIR25TA3 PO (08:51)
[2016-11-24] MEDS ORDERED: PREG75CA PO (08:51)
[2016-11-24] MEDS ORDERED: ESCI10TA PO (08:51)
--- NOTE | 2016-11-24 09:38 | Diagnostic Imaging Report ---
PROCEDURE: CT head, face, and cervical spine without contrast. TECHNIQUE: Multiple contiguous axial images were obtained through the head, neck, and facial bones without the use of intravenous contrast. Sagittal and coronal reformations through the cervical spine and facial bones were also performed. INDICATION: Head and facial trauma after a fall CT HEAD: The ventricles are normal in size, shape and position. There are no masses or hemorrhages. There are no extra-axial fluid collections. There are no skull fracture seen. IMPRESSION: Negative CT head. CT FACIAL BONES: The orbital appiah and rims appear to be intact. Paranasal sinuses are clear. Nasal bones are intact. Mandible is intact. IMPRESSION: Negative CT facial bones. CT CERVICAL SPINE: Vertebral body height and alignment appear normal. Disc spaces are well maintained. There is no prevertebral soft tissue swelling. There are no fractures. IMPRESSION: Negative CT cervical spine. Dictated by: Dictated on workstation # [id number]
--- NOTE | 2016-11-24 09:43 | Diagnostic Imaging Report ---
INDICATION: Left elbow injury 3 views of the left elbow show no fracture, dislocation or other acute abnormalities. IMPRESSION: Negative left elbow Dictated by: Dictated on workstation # [id number]
[2016-11-24] MEDS ORDERED: CLIN300C11 PO (09:46)
--- NOTE | 2016-11-24 09:47 | ED Trauma-Multisystem ---
General Chief Complaint: Trauma-Non Activation Stated Complaint: SEIZURE/FACIAL INJURY Nursing Triage Note: PT AMBULATES TO ED ROOM 4 STATES HAD SEIZURE YESTERDAY AND FELL ON FACE, PT STATES HAS PORTILLO, FACIAL BRUISING ON CHIN,NOSE,FOREHEAD AND L ELBOW Source of Information: Patient History of Present Illness Time Seen by Provider: 08:45 Initial Comments PT STATES SHE HAD A SEIZURE YESTERDAY AM PT WITH KNOWN SEIZURE DISORDER SINCE 2010 STATES SHE WAS OUTSIDE SMOKING A CIGARETTE AND SHE WAS WALKING BACK INTO THE HOUSE SHE HAD A SEIZURE AND FELL FORWARD ON HER FACE--THINKS SHE HIT THE COFFEE TABLE EPISODE WAS NOT WITNESSED PT WOKE UP ON THE FLOOR + INCONTINENCE OF URINE HAS BRUISING TO FACE AND CHIN, AND BIT THE INSIDE OF HER LOWER LIP NO DENTAL PAIN DID NOT BITE HER TONGUE NO PROBLEMS OPENING HER MOUTH OR EATING C/O HEADACHE NO NECK OR BACK PAIN NO VISION CHANGES NO NAUSEA/VOMITING NO DIZZINESS C/O GENERALIZED BODY ACHES C/O LEFT ELBOW PAIN C/O JAW/CHIN PAIN Location Injury Occurred: HOME PCP: DR. KOEHLER--HAS AN APPOINTMENT AT 10 AM TODAY HAS FIRST APPOINTMENT WITH A NEUROLOGIST 12/05/16 HAD EEG LAST WEEK Allergies and Home Medications Allergies Coded Allergies: penicillin V (Verified Allergy, Unknown, 09/17/10) Home Medications 1 TAB PO DAILY (Reported) 1 TAB PO DAILY (Reported) Alprazolam 1 Mg Tablet 1 MG PO TID (Reported) Clindamycin HCl 300 Mg Capsule #40 300 MG PO QID Prescribed by: LEOPOLDO PATEL on 11/24/16 0946 Escitalopram Oxalate 10 Mg Tablet Unknown Dose PO (Reported) Metoprolol Succinate 100 Mg Tab.er.24h 100 MG PO DAILY (Reported) Mupirocin Calcium 15 Gm Cream..g. #22 15 GM TP BID Prescribed by: LEOPOLDO PATEL on 11/24/16 0951 Pregabalin 75 Mg Capsule 75 MG PO BID (Reported) Spironolactone 25 Mg Tablet 25 MG PO DAILY (Reported) Constitutional: no symptoms reported Eyes: No Symptoms Reported Ears: No Symptoms Reported Nose: No Symptoms ReportedNo Bloody Discharge, No Clear Discharge, No Serosanguinous Discharge, No Epistaxis, No Pain Mouth: See HPINo Loose Teeth Throat: No Symptoms to Report Respiratory: no symptoms reported Cardiovascular: No Symptoms Reported Gastrointestinal: no symptoms reported Genitourinary: see HPI : No LMP: Nov 05, 2016 (NORMALON OCP'S) Control/STD Prophylaxis: BC Pills Musculoskeletal: see HPI Skin: see HPI Psychiatric/Neurological: See HPI Past Aknlmqv-Bzqmlq-Afrbkh Hx Patient Social History Alcohol Use: Denies Use Recreational Drug Use: Yes (THC) Drug of Choice: marijuana Smoking Status: Current Everyday Smoker ( 1 PPD) Type Used: Cigarettes Recent Foreign Travel: No Contact w/Someone Who Travel: No Recent Infectious Disease Expo: No Recent Hopitalizations: No Immunizations Up To Date Tetanus Booster (TDap): Less than 5yrs (2014) Surgeries HX Surgeries: Yes (WISDOM TEETH REMOVED) Respiratory Hx Respiratory Disorders: No Cardiovascular Hx Cardiac Disorders: Yes Cardiac Disorders: Hypertension Neurological Hx Neurological Disorders: Yes Neurological Disorders: Seizure Disorder Reproductive System Hx Reproductive Disorders: No Female Reproductive Disorders: Denies Genitourinary Hx Genitourinary Disorders: No Gastrointestinal Hx Gastrointestinal Disorders: Yes Gastrointestinal Disorders: Liver Disease/Jaundice, Cirrhosis Musculoskeletal Hx Musculoskeletal Disorders: No Endocrine Hx Endocrine Disorders: No HEENT HX ENT Disorders: Yes Cancer Hx Cancer: No Psychosocial Hx Psychiatric Problems: Yes Behavioral Health Disorders: Anxiety, Depression Integumentary HX Skin/Integumentary Disorder: No Blood Transfusions Hx Blood Disorders: No Physical Exam Vital Signs Vital Sign - Last 12Hours 11/24/16 08:35 Temp 97.4 Pulse 89 Resp 16 B/P 149/80 Pulse Ox 98 Temperature (Fahrenheit): 97.4 General Appearance: No Apparent Distress WD/WN Head: Ecchymosis Other (SWELLING, TENDERNESS AND BRUISING TO CHIN AND LEFT JAW /MOUTH AREA. HAS SCABBED ABRASION ABOVE UPPER LIP. HAS MILD BRUISING AND TENDERNESS TO RIGHT FOREHEAD. ) Swelling Tenderness Eyes: Bilateral Eye EOMI, Bilateral Eye Normal Inspection, Bilateral Eye PERRL Ears, Nose, Throat: Hearing Grossly NormalNo Clear Fluid (Ears), No Clear Fluid (Nose), No Hemotympanum, No Midface Instability, No Dental Injury, Other (ABRASION TO INNER ASPECT OF LOWER LIP. NO DENTAL INJURY. NO TRISMUS, NO MANDIBULAR CLICKING OR CREPITANCE AND HAS FULL MOUTH OPENING WITHOUT DIFFICULTY) Neck: Full Range of Motion Normal Inspection Non Tender Supple Cardiovascular: Regular Rate, Rhythm No Edema No JVD No Murmur Normal Peripheral Pulses Respiratory: Chest Non Tender Normal Breath Sounds No Accessory Muscle Use Gastrointestinal: Normal Bowel Sounds No Organomegaly No Pulsatile Mass Non Tender Soft Back: Normal Inspection No CVA Tenderness No Vertebral Tenderness Extremity: Normal Capillary Refill Normal Range of Motion No Calf Tenderness No Pedal Edema Other (TENDERNESS AND BRUISING TO LEFT ELBOW AREA) Neurologic/Psychiatric: Alert Oriented x3 No Motor/Sensory Deficits Normal Mood/AffectNo Abnormal Cerebellar Tests Skin: Normal Color Warm/Dry Ecchymosis [place] Coma Score Best Eye Response ([place]): (4) Open Spontaneously Best Verbal Response ([place]): (5) Oriented Best Motor Response ([place]): (6) Obeys Commands [place] Total: 15 Progress/Results/Core Measures Results/Orders My Orders Orders-LEOPOLDO PATEL DO Ct Head/Face/Cervical Wo (11/24/16 08:46) Elbow, Left, 3 Views (11/24/16 08:46) Vital Signs/I&O Vital Sign - Last 12Hours 11/24/16 11/24/16 08:35 10:00 Temp 97.4 99.4 Pulse 89 80 Resp 16 18 B/P 149/80 Pulse Ox 98 99 Blood Pressure Mean: 103 Progress Note : Progress Note UNEVENTFUL ER STAY Diagnostic Imaging Comments CT HEAD/MAXILLOFACIALS/CERVICAL SPINE--NO ACUTE PROCESS, PER RADIOLOGIST REPORT @ 0940 XRAYS LEFT ELBOW--NO ACUTE PROCESS, PER RADIOLOGIST REPORT @ 0947 Reviewed: Reviewed by Me Departure Impression Impression: Primary Impression: Seizure disorder Additional Impressions: Facial contusion Abrasion of oral cavity MULTIPLE FACIAL ABRASIONS ELBOW CONTUSION AND ABRASION Disposition: 01 HOME, SELF-CARE Condition: Stable Departure-Patient Inst. Referrals: DAVID KOEHLER MD (PCP/Family) Primary Care Physician Patient Instructions: Contusion (DC), Minor Head Injury (DC), Seizures, Adult ( DC), Skin Abrasions (DC) Add. Discharge Instructions: ICE TO SORE AREAS AT 20 MINUTE INTERVALS ACTIVITIES TOLERATED EXCEPT NO DRIVING OR OPERATING MACHINERY TYLENOL AND MOTRIN NEEDED FOR PAIN FOLLOW UP WITH DR. KOEHLER AND NEUROLOGIST SCHEDULED All discharge instructions reviewed with patient and/or family. Voiced understanding. Scripts Mupirocin Calcium (Bactroban)15 Gm Cream..g.15 Gm TP BID #22 TUBE Prov:LEOPOLDO PATEL DO 11/24/16 Clindamycin HCl 300 Mg [id number] Mg PO QID FOR INFECTION #40 CAP Prov:LEOPOLDO PATEL DO 11/24/16 Images Full Body/Extremities Full Progress SEE ADDITIONAL PAPER DIAGRAMS FOR IMAGES LEOPOLDO PATEL DO Nov 24, 2016 09:47
[2016-11-24] MEDS ORDERED: MUPI15CR TP (09:51)
[2016-11-24 10:00] VITALS: BP 124/81
== END 2016-11-24 10:00 | disposition home or self-care (01) ==
LOC: EDUNIT# 08:20 → ER 08:22
DX: S00.33XA Contusion of nose, initial encounter (principal); S00.83XA Contusion of other part of head, initial encounter; S50.02XA Contusion of left elbow, initial encounter; G40.909 Epilepsy, unspecified, not intractable, without status epilepticus; F17.210 Nicotine dependence, cigarettes, uncomplicated; Z79.899 Other long term (current) drug therapy; W18.30XA Fall on same level, unspecified, initial encounter; Y99.8 Other external cause status
CPT/HCPCS: 70450; 70486; 72125; 73080; 99282

== ENCOUNTER 2018-02-16 06:54 | Emergency (ER) | payer BC, OTHER ==
[~2018-02-16] VITALS: Ht 157.5 cm; Wt 77.1 kg
[~2018-02-16 06:54] MED LIST changes: +ALPR1TAB2 PO; +BIRTHCONTROL PO; +CLIN300C11 PO; +ESCI10TA PO; -METO-274 PO; +METO-395 PO; +MUPI15CR TP; +PREG75CA PO; +SPIR25TA3 PO
[2018-02-16] MEDS ORDERED: ONDANSETRON 4 MG/2 ML (SDV) Z0FRAN IVP ONE (07:15)
[2018-02-16] MEDS ORDERED: PANTOPRAZOLE 40 MG/10 ML (PROTONIX) VIAL IV ONE (07:15)
[2018-02-16] MEDS ORDERED: raNItidine 50 MG/2 ML INJ (ZANTAC) IJ ONE (07:15)
[2018-02-16] MEDS ORDERED: METO-387 PO (07:19)
[2018-02-16] MEDS ORDERED: multi vitamin (07:19)
[2018-02-16] MEDS ORDERED: iron (07:19)
[2018-02-16] MEDS ORDERED: ESCI20TA45 PO (07:19)
[2018-02-16] MEDS ORDERED: NS IV 1000 ML 1,000 ML IV ONE (07:28)
[2018-02-16 07:48] LABS: BASOPHILS % (AUTO) 0 % (0-10); EOSINOPHILS % (AUTO) 0 % (0-10); HEMATOCRIT 27 % (35-52); HEMOGLOBIN 9.1 G/DL (11.5-16.0); LYMPHOCYTES # (AUTO) 2.4 X 10^3 (1.0-4.0); LYMPHOCYTES % (AUTO) 21 % (12-44); MEAN CORPUSCULAR HEMOGLOBIN 34 PG (25-34); MEAN CORPUSCULAR HGB CONC 34 G/DL (32-36); MEAN CORPUSCULAR VOLUME 100 FL (80-99); MEAN PLATELET VOLUME 10.1 FL (7.4-10.4); MONOCYTES # (AUTO) 0.8 X 10^3 (0.0-1.0); MONOCYTES % (AUTO) 7 % (0-12); NEUTROPHILS # (AUTO) 8.1 X 10^3 (1.8-7.8); NEUTROPHILS % (AUTO) 71 % (42-75); PLATELET COUNT 118 10^3/uL (130-400); RED BLOOD COUNT 2.66 10^6/uL (4.35-5.85); RED CELL DISTRIBUTION WIDTH 13.9 % (10.0-14.5); WHITE BLOOD COUNT 11.3 10^3/uL (4.3-11.0)
[2018-02-16 08:04] LABS: INR 1.6 (0.8-1.4); PROTHROMBIN TIME PATIENT 18.7 SEC (12.2-14.7)
[2018-02-16 08:11] LABS: ALANINE AMINOTRANSFERASE 53 U/L (0-55); ALBUMIN 3.6 GM/DL (3.2-4.5); ALKALINE PHOSPHATASE 77 U/L (40-136); BILIRUBIN,TOTAL 2.1 MG/DL (0.1-1.0); BUN/CREATININE RATIO 37; CALCIUM 8.1 MG/DL (8.5-10.1); CARBON DIOXIDE 20 MMOL/L (21-32); CHLORIDE 102 MMOL/L (98-107); CREATININE SERUM 0.68 MG/DL (0.60-1.30); GFR ESTIMATED > 60; GLUCOSE 168 MG/DL (70-105); POTASSIUM 3.4 MMOL/L (3.6-5.0); SODIUM 138 MMOL/L (135-145); TOTAL PROTEIN 7.3 GM/DL (6.4-8.2)
--- NOTE | 2018-02-16 08:28 | ED GI ---
General Chief Complaint: Abdominal/GI Problems Stated Complaint: VOMITING,BLOOD IN VOMIT,DIRRAHEA Nursing Triage Note: ARRIVED VIA AMB TO ROOM 05. STATES TODAY SHE WOKE UP AND VOMITED UP A LARGE AMOUNT OF BLOOD AND HAD SOME DARK DIARRHEA STOOL. Sepsis Screen: No Definite Risk Source of Information: Patient Exam Limitations: No Limitations History of Present Illness Date Seen by Provider: February 16, 2018 Time Seen by Provider: 06:57 Initial Comments This 37-year-old young lady presents to the emergency room with complaints of hematemesis and black colored diarrhea. Symptoms just started this morning. She reports feeling clammy and lightheaded. She recently tapered off Topamax which she had been taking for seizure disorder. She reports a history of cirrhosis and esophageal varices and states she quit drinking alcohol 2.5 years ago. Patient later admitted to drinking alcohol daily after the results of her serum alcohol level returned. She has been taking ibuprofen recently for " sinus headache". She notes her primary care provider told her to weeks ago she needed to have her esophageal varices addressed because of iron deficiency noted on her lab work. Her primary care provider is Dr. Quintana. Her last endoscopy was performed by Dr. Khalil. Allergies and Home Medications Allergies Coded Allergies: penicillin V (Verified Allergy, Unknown, 09/17/10) Home Medications Escitalopram Oxalate 20 Mg Tablet, 20 MG PO DAILY, (Reported) Lorazepam 1 Mg Tablet, 1-2 MG PO Q4H PRN for AGITATION Prescribed by: KENNEY VELAZQUEZ on 02/16/18902 Metoprolol Succinate 25 Mg Tab.er.24h, 25 MG PO DAILY, (Reported) Omeprazole 20 Mg Tablet.dr, 20 MG PO BID Prescribed by: KENNEY VELAZQUEZ on 02/16/18902 Ondansetron 4 Mg Tab.rapdis, 4 MG SL Q4H PRN for NAUSEA/VOMITING-1ST LINE Prescribed by: KENNEY VELAZQUEZ on 02/16/18902 Sucralfate 1 Gm/10 Ml Oral.susp, 1 GM PO QID 30 minutes before meals and bedtime Prescribed by: KENNEY VELAZQUEZ on 02/16/18902 [Birthcontrol] , 1 TAB PO DAILY, (Reported) Patient Home Medication List Home Medication List Reviewed: Yes Review of Systems Constitutional: no symptoms reported EENTM: No Symptoms Reported Respiratory: No Symptoms Reported Cardiovascular: No Symptoms Reported Gastrointestinal: See HPI Genitourinary: No Symptoms Reported Musculoskeletal: no symptoms reported Skin: no symptoms reported Psychiatric/Neurological: See HPI Endocrine: No Symptoms Reported Past Qyetrgn-Mlmjhp-Ytehwi Hx Patient Social History Alcohol Use: Regular Use Recreational Drug Use: No Drug of Choice: marijuana Smoking Status: Current Everyday Smoker Type Used: Cigarettes Recent Foreign Travel: No Contact w/Someone Who Travel: No Recent Infectious Disease Expo: No Recent Hopitalizations: No Immunizations Up To Date Tetanus Booster (TDap): Less than 5yrs Past Medical History Surgeries: Yes (WISDOM TEETH REMOVED) Abdominal (upper endoscopy) Respiratory: No Cardiac: Yes Hypertension Neurological: Yes Seizure Disorder Reproductive Disorders: No Female Reproductive Disorders: Denies Genitourinary: No Gastrointestinal: Yes Liver Disease/Jaundice, Esophageal Varices, Cirrhosis Musculoskeletal: No Endocrine: No HEENT: No Cancer: No Psychosocial: Yes (alcohol dependence) Anxiety, Depression Integumentary: No Blood Disorders: No Physical Exam Vital Signs Vital Signs - First Documented 02/16/18 07:10 Temp 98.0 Pulse 112 Resp 18 B/P (MAP) 142/96 (111) Pulse Ox 99 O2 Delivery Room Air Capillary Refill : Less Than 3 Seconds General Appearance: WD/WN, mild distress (appears anxious) HEENT: PERRL/EOMI, normal ENT inspection, pharynx normal Neck: normal inspection Respiratory: lungs clear, normal breath sounds, no respiratory distress, no accessory muscle use Cardiovascular: no edema, no murmur, tachycardia Gastrointestinal: normal bowel sounds, non tender, soft Extremities: normal inspection, no pedal edema Neurologic/Psychiatric: tanyard worker II-XII nml as tested, no motor/sensory deficits, alert, oriented x 3, other (anxious, mild tremor. Tremor worsening as time passes) Skin: normal color, warm/dry Progress/Results/Core Measures Results/Orders Lab Results Laboratory Tests Test 02/16/18 07:10 Range/Units White Blood Count 11.3 H 4.3-11.0 10^3/uL Red Blood Count 2.66 L 4.35-5.85 10^6/uL Hemoglobin 9.1 L 11.5-16.0 G/DL Hematocrit 27 L 35-52 % Mean Corpuscular Volume 100 H 80-99 FL Mean Corpuscular Hemoglobin 34 25-34 PG Mean Corpuscular Hemoglobin Concent 34 32-36 G/DL Red Cell Distribution Width 13.9 10.0-14.5 % Platelet Count 118 L 130-400 10^3/uL Mean Platelet Volume 10.1 7.4-10.4 FL Neutrophils (%) (Auto) 71 42-75 % Lymphocytes (%) (Auto) 21 12-44 % Monocytes (%) (Auto) 7 0-12 % Eosinophils (%) (Auto) 0 0-10 % Basophils (%) (Auto) 0 0-10 % Neutrophils # (Auto) 8.1 H 1.8-7.8 X 10^3 Lymphocytes # (Auto) 2.4 1.0-4.0 X 10^3 Monocytes # (Auto) 0.8 0.0-1.0 X 10^3 Eosinophils # (Auto) 0.0 0.0-0.3 10^3/uL Basophils # (Auto) 0.0 0.0-0.1 10^3/uL Prothrombin Time 18.7 H 12.2-14.7 SEC INR Comment 1.6 H 0.8-1.4 Activated Partial Thromboplast Time 26 24-35 SEC Sodium Level 138 135-145 MMOL/L Potassium Level 3.4 L 3.6-5.0 MMOL/L Chloride Level 102 98-107 MMOL/L Carbon Dioxide Level 20 L 21-32 MMOL/L Anion Gap 16 H 5-14 MMOL/L Blood Urea Nitrogen 25 H 7-18 MG/DL Creatinine 0.68 0.60-1.30 MG/DL Estimat Glomerular Filtration Rate > 60 BUN/Creatinine Ratio 37 Glucose Level 168 H 70-105 MG/DL Calcium Level 8.1 L 8.5-10.1 MG/DL Total Bilirubin 2.1 H 0.1-1.0 MG/DL Aspartate Amino Transf (AST/SGOT) 134 H 5-34 U/L Alanine Aminotransferase (ALT/SGPT) 53 0-55 U/L Alkaline Phosphatase 77 40-136 U/L Total Protein 7.3 6.4-8.2 GM/DL Albumin 3.6 3.2-4.5 GM/DL Serum Test, Qualitative NEGATIVE NEGATIVE Serum Alcohol 94 H <10 MG/DL My Orders Orders - KENNEY FELDRE MD Alcohol (02/16/18 07:05) Cbc With Automated Diff (02/16/18 07:05) Comprehensive Metabolic Panel (02/16/18 07:05) Protime With Inr (02/16/18 07:05) Partial Thromboplastin Time (02/16/18 07:05) Saline Lock/Iv-Start (02/16/18 07:05) Monitor-Rhythm Ecg Trace Only (02/16/18 07:05) Pantoprazole Injection (Protonix Injecti (02/16/18 07:15) Ranitidine Injection (Zantac Injection) (02/16/18 07:15) Ondansetron Injection (Zofran Injectio (02/16/18 07:15) Hcg,Qualitative Serum (02/16/18 07:05) Red Cells Leukocytes Reduced (02/16/18 07:10) Type And Screen (02/16/18 07:10) Ns Iv 1000 Ml (Sodium Chloride 0.9%) (02/16/18 07:28) Lorazepam Injection (Ativan Injection) (02/16/18 09:00) Lorazepam Tablet (Ativan Tablet) (02/16/18 09:15) Medications Given in ED Current Medications Medications Dose Ordered Sig/Betsy Route Start Time Stop Time Status Last Admin Dose Admin Lorazepam 1 mg ONCE ONCE IVP 02/16/18 09:00 02/16/18 09:01 DC 02/16/18 08:53 1 MG Lorazepam 1 mg ONCE ONCE PO 02/16/18 09:15 02/16/18 09:16 DC 02/16/18 09:15 1 MG Ondansetron HCl 8 mg ONCE ONCE IVP 02/16/18 07:15 02/16/18 07:16 DC 02/16/18 07:29 8 MG Pantoprazole 80 mg ONCE ONCE IV 02/16/18 07:15 02/16/18 07:16 DC 02/16/18 07:28 80 MG Ranitidine HCl 50 mg ONCE ONCE IJ 02/16/18 07:15 02/16/18 07:16 DC 02/16/18 07:28 50 MG Sodium Chloride 1,000 ml @ 0 mls/hr Q0M ONCE IV 02/16/18 07:28 02/16/18 07:29 DC 02/16/18 07:34 1,000 MLS/HR Vital Signs/I&O 02/16/18 02/16/18 07:10 09:16 Temp 98.0 Pulse 112 119 Resp 18 18 B/P (MAP) 142/96 (111) 142/98 Pulse Ox 99 99 O2 Delivery Room Air Blood Pressure Mean: 111 Progress Progress Note : Progress Note Patient was aggressively treated with ranitidine and high-dose Protonix. Zofran was given for nausea and vomiting. Since she was tachycardic a liter of IV hydration was administered. Patient admitted to daily alcohol consumption after the toxicology screen was positive for alcohol. Admission to [facility] was recommended due to patient's history of esophageal varices and possible need for banding. Patient has seen Dr. Khalil in the past. During discussion of disposition, patient refused admission to [facility] or any other facility. I expressed my extreme concern for her safety given the potential for alcohol withdrawal and bleeding esophageal varices. I explained to her at length why both of these conditions were very dangerous. I made it very clear to her that consequences of refusing admission could result in severe complications or in the very near future. Patient knowledge these concerns but still insisted on leaving AGAINST MEDICAL ADVICE. Patient was given Ativan 1 mg by IV route and 1 mg orally prior to dismissal. Prescriptions were provided. Patient asked that I not share any of this information with her primary care provider. Again I urged the patient to allow me to intervene on her behalf and to communicate with her primary care provider. Patient acknowledged my concern but refused to allow me to visit with her doctor. Patient ultimately left the emergency room AGAINST MEDICAL ADVICE with her mother. See discharge instructions. Departure Impression Primary Impression: Upper GI bleed Additional Impressions: Esophageal varices Qualified Codes: I85.01 - Esophageal varices with bleeding Alcohol dependence Qualified Codes: F10.288 - Alcohol dependence with other alcohol-induced disorder Left against medical advice Anemia Qualified Codes: D64.9 - Anemia, unspecified Disposition: AGAINST MEDICAL ADVICE Condition: Against Medical Advice Departure-Patient Inst. Referrals: DAVID QUINTANA MD (PCP/Family) Primary Care Physician Patient Instructions: Alcohol Abuse and Alcoholism (DC), Alcohol Withdrawal, Cirrhosis (DC), Esophageal Varices Add. Discharge Instructions: Please be aware that you are leaving the hospital today AGAINST MEDICAL ADVICE with a multiple potentially life-threatening conditions. Take omeprazole 20 mg twice daily and Carafate 4 times daily as prescribed. Follow-up with your primary care provider soon as possible. If you change your mind and wish to have your conditions addressed immediately, return to the ER either here or at [facility] in [place]. Avoid abruptly stopping alcohol consumption without countering alcohol withdrawal with Ativan or another benzodiazepine as alcohol withdrawal can cause life-threatening seizures. Ativan has been prescribed to help manage alcohol withdrawal symptoms such as agitation, tremors, rapid heart rate, and to help prevent seizures. Continued alcohol consumption may worsen your gastrointestinal bleeding and esophageal varices and therefore may cause life-threatening bleeding. All discharge instructions reviewed with patient and/or family. Voiced understanding. Scripts Lorazepam (Ativan) 1 Mg Tablet 1-2 MG PO Q4H PRN for AGITATION, #20 TAB Prov: KENNEY FELDER MD 02/16/18 Sucralfate (Carafate) 1 Gm/10 Ml Oral.susp 1 GM PO QID, #1200 ML 30 minutes before meals and bedtime Prov: KENNEY FELDER MD 02/16/18 Ondansetron (Zofran Odt) 4 Mg Tab.rapdis 4 MG SL Q4H PRN for NAUSEA/VOMITING-1ST LINE, #10 TAB Prov: KENNEY FELDER MD 02/16/18 Omeprazole (Omeprazole) 20 Mg Tablet.dr 20 MG PO BID, #60 TAB Prov: KENNEY FELDER MD 02/16/18 KENNEY FELDER MD February 16, 2018 08:27
[2018-02-16] MEDS ORDERED: LORazepam INJ 2 MG/ML (ATIVAN) VIAL IVP ONE (09:00)
[2018-02-16] MEDS ORDERED: ONDA4TAB8 SL (09:03)
[2018-02-16] MEDS ORDERED: SUCR1ORA5 PO (09:03)
[2018-02-16] MEDS ORDERED: OMEP20TA7 PO (09:03)
[2018-02-16] MEDS ORDERED: LORA-405 PO (09:03)
[2018-02-16] MEDS ORDERED: LORazepam 1 MG (ATIVAN) TAB PO ONE (09:15)
[2018-02-16 09:16] VITALS: BP 142/98
== END 2018-02-16 09:16 | disposition left against medical advice (07) ==
LOC: EDUNIT# 06:54 → ER 06:57
DX: I85.01 Esophageal varices with bleeding (principal); F10.20 Alcohol dependence, uncomplicated; D64.9 Anemia, unspecified; G40.909 Epilepsy, unspecified, not intractable, without status epilepticus; I10 Essential (primary) hypertension; F41.9 Anxiety disorder, unspecified; F32.9 Major depressive disorder, single episode, unspecified; F17.210 Nicotine dependence, cigarettes, uncomplicated; F12.10 Cannabis abuse, uncomplicated; Z87.19 Personal history of other diseases of the digestive system; Z88.0 Allergy status to penicillin
CPT/HCPCS: 36415; 80053; 80320; 84703; 85025; 85610; 85730; 86850; 86900; 86901; 86920; 93041; 96361; 96374; 96375